=== PATIENT | female | born 1980 | race Caucasian/White ===

== ENCOUNTER 2017-05-06 15:17 | Emergency (ER) | payer BC ==
--- NOTE | 2017-05-06 16:51 | UC ---
Throat Pain/Nasal [place] HPI - HPI Summary HPI Summary: 37 year old female presents with complains of sore throat and headache. - History of Current Complaint Stated Complaint: ST, HEADACHE, FEVER Time Seen by Provider: 05/06/17 16:50 Hx Obtained From: Patient Hx Last Menstrual Period: 08/15/14 Onset/Duration: Sudden Onset Severity: Moderate Pain Scale Used: 0-10 Numeric - 5 - Allergies/Home Medications Allergies/Adverse Reactions: Allergies Allergy/AdvReac Type Severity Reaction Status Date / Time No Known Allergies Allergy Verified 05/06/17 16:56 Home Medications: Home Medications Albuterol 2.5MG/3ML (0.083%)* [Ventolin 2.5 MG/3 ML NEB.DAHIANA*] 2.5 mg INH Q4H PRN 05/06/17 [History Confirmed 05/06/17] Fluticasone/Vilanterol MDI(NF) [Breo Ellipta MDI (NF)] 1 puff INH DAILY [History Confirmed 05/06/17] PMH/Surg Hx/FS Hx/Imm Hx Previously Healthy: Yes - Surgical History Surgical History: Yes Surgery Procedure, Year, and Place: 2 C-SECTIONS, SINUS, - Social History Alcohol Use: Weekly Substance Use Type: None Smoking Status (MU): Never Smoked Tobacco Review of Systems Constitutional: Negative Skin: Negative Eyes: Negative ENT: Sore Throat, Sinus Congestion, Sinus Pain/Tenderness Respiratory: Negative Cardiovascular: Negative Gastrointestinal: Negative Genitourinary: Negative Motor: Negative Neurovascular: Negative Musculoskeletal: Negative Neurological: Headache Psychological: Negative All Other Systems Reviewed And Are Negative: Yes Physical Exam Triage Information Reviewed: Yes Vital Signs Reviewed: Yes Eye Exam: Normal ENT: Positive: Pharyngeal erythema, Sinus tenderness Dental Exam: Normal Neck exam: Normal Neck: Positive: 1 Respiratory Exam: Normal Cardiovascular Exam: Normal Abdominal Exam: Normal Musculoskeletal Exam: Normal Neurological Exam: Normal Psychological Exam: Normal Skin Exam: Normal Throat Pain/Nasal Course/Dx - Differential Dx/Diagnosis Provider Diagnoses: sinusitis. headache Discharge - Discharge Plan Condition: Stable Disposition: HOME Prescriptions: Amoxicillin/Clavulanate TAB* [Augmentin TAB 875*] 875 mg PO BID #20 tab LoraTADine TAB(NF) [Claritin 10 MG TAB(NF)] 10 mg PO DAILY #30 tab Magic M W2 [place]/Maal/Nyst/Lido* 5 ml SWISH SPIT QID PRN #120 ml PRN Reason: Sore Throat Patient Education Materials: Pharyngitis (ED), Allergic Rhinitis (ED) Referrals: Lakeshia Tsang PA [Primary Care Provider] -
[2017-05-06 16:56] VITALS: BP 134/80
== END 2017-05-06 17:30 | disposition home or self-care (01) ==
LOC: UCCORT 15:17
DX: J32.9 Chronic sinusitis, unspecified (principal); R51 Headache
CPT/HCPCS: 87651; 99212; G0463

== ENCOUNTER 2018-06-29 10:54 | Emergency (ER) | payer BC ==
[2018-06-29 11:28] VITALS: BP 151/91
--- NOTE | 2018-06-29 11:46 | UC ---
Throat Pain/Nasal [place] HPI - HPI Summary HPI Summary: body aches x 1 day + fatigue , sore throat, no fever, no cough mild nasal congestion lower back pain , mild dysuria no abdominal pain , no flank pain - History of Current Complaint Chief Complaint: UCRespiratory Stated Complaint: BODY ACHES,SORE THROAT Time Seen by Provider: 06/29/18 11:21 Hx Obtained From: Patient Hx Last Menstrual Period: 08/15/14 ?: No Onset/Duration: Gradual Onset, Lasting Days - 1, Still Present Severity: Moderate Pain Intensity: 3 Cough: None Associated Signs & Symptoms: Negative: Drooling, Wheezing, Hoarseness, Sinus Discomfort, Nasal Discharge, Fever, Vomiting, Rash - Allergies/Home Medications Allergies/Adverse Reactions: Allergies Allergy/AdvReac Type Severity Reaction Status Date / Time No Known Allergies Allergy Verified 06/29/18 11:23 Home Medications: Home Medications Etanercept [Enbrel] 50 mg INJ WEEKLY 06/29/18 [History Confirmed 06/29/18] Norelgestromin/Ethin.estradiol [Xulane Patch] 1 patch 06/29/18 [History] PMH/Surg Hx/FS Hx/Imm Hx - Additional Past Medical History Additional PMH: chronic back pain ankylosing spondylosis Respiratory History: Asthma - Surgical History Surgical History: Yes Surgery Procedure, Year, and Place: 2 C-SECTIONS, SINUS. BREAST REDUCTION, JUN 2016 - Family History Known Family History: Negative: Diabetes - Social History Alcohol Use: Weekly Substance Use Type: None Smoking Status (MU): Never Smoked Tobacco - Immunization History Most Recent Influenza Vaccination: [id number] Review of Systems All Other Systems Reviewed And Are Negative: Yes Constitutional: Positive: Negative Skin: Positive: Negative Eyes: Positive: Negative ENT: Positive: Sore Throat Respiratory: Positive: Negative Gastrointestinal: Positive: Negative Genitourinary: Positive: Dysuria Musculoskeletal: Positive: Arthralgia, Myalgia Is Patient Immunocompromised?: No Physical Exam Triage Information Reviewed: Yes Appearance: Well-Appearing, No Pain Distress, Well-Nourished Vital Signs: Initial Vital Signs Temp 97.3 F 06/29/18 11:20 Pulse 107 06/29/18 11:20 Resp 19 06/29/18 11:20 BP 151/91 06/29/18 11:20 Pulse Ox 100 06/29/18 11:20 Vital Signs Reviewed: Yes Eye Exam: Normal Eyes: Positive: Conjunctiva Clear ENT: Positive: Normal ENT inspection, Hearing grossly normal, Pharynx normal Neck exam: Normal Neck: Positive: Supple, Nontender, No Lymphadenopathy Respiratory: Positive: Chest non-tender, Lungs clear, Normal breath sounds, No respiratory distress Cardiovascular: Positive: No Murmur, Tachycardia Abdomen Description: Positive: Nontender, Soft. Negative: Bruit, CVA Tenderness (R), CVA Tenderness (L), Distended, Guarding Bowel Sounds: Positive: Present Skin Exam: Normal Throat Pain/Nasal Course/Dx - Differential Dx/Diagnosis Provider Diagnosis: Hematuria, Viral illness Discharge - Sign-Out/Discharge Documenting (check all that apply): Patient Departure All imaging exams completed and their final reports reviewed: No Studies - Discharge Plan Condition: Stable Disposition: HOME Prescriptions: Sulfamethox/Trimethoprim DS* [Bactrim DS 800/160 TAB*] 1 tab PO BID #14 tab Patient Education Materials: Hematuria (ED), Viral Syndrome (ED) Referrals: Lakeshia Tsang PA [Primary Care Provider] - 7 Days - Billing Disposition and Condition Condition: STABLE Disposition: Home
== END 2018-06-29 11:59 | disposition home or self-care (01) ==
LOC: UCCORT 10:54
DX: R31.9 Hematuria, unspecified (principal); B34.9 Viral infection, unspecified
CPT/HCPCS: 81003; 87077; 87086; 87186; 99212; G0463